=== PATIENT | male | born 1995 | race Hispanic/Latino ===

== ENCOUNTER 2024-03-29 19:27 | Inpatient (IN) | payer SELFPAY ==
[2024-03-29] MEDS ORDERED: Senokot S 8.6-50 MG TAB PO PRN (21:43)
[2024-03-29] MEDS ORDERED: Acetaminophen 325 MG TAB PO PRN (21:43)
[2024-03-29] MEDS ORDERED: Bisacodyl 5 MG TAB PO PRN (21:43)
[2024-03-29] MEDS ORDERED: Acetaminophen 650 MG Suppository PR PRN (21:43)
[2024-03-29 22:28] LABS: Albumin 3.8 g/dL (3.1-4.5); Anion Gap 15 mmol/L (10-20); BUN (Urea Nitrogen) 56 mg/dL (8.9-20.6); BUN/Creatinine Ratio 16.82; Calc. Creatinine Clearance 0 mL/min (70-130); Calcium 9.8 mg/dL (7.8-10.44); Carbon Dioxide 16 mmol/L (22-29); Chloride 115 mmol/L (98-107); Estimated GFR 25; Glucose 90 mg/dL (70-105); Potassium 5.1 mmol/L (3.5-5.1); Prothrombin Time 12.9 sec (12.0-14.7); Sodium 141 mmol/L (136-145)
[2024-03-29 22:29] VITALS: BMI 37.2
[2024-03-29 22:30] LABS: Phosphorus 4.3 mg/dL (2.5-4.5); Uric Acid 10.2 mg/dL (3.7-7.7)
[2024-03-30] MEDS: Sodium Bicarbonate 150 MEQ in Sterile Water 1,000 ML IV SCH (01:07)
[2024-03-30 05:34] LABS: Anion Gap 14 mmol/L (10-20); BUN (Urea Nitrogen) 53 mg/dL (8.9-20.6); Calc. Creatinine Clearance 54 mL/min (70-130); Calcium 9.3 mg/dL (7.8-10.44); Carbon Dioxide 20 mmol/L (22-29); Chloride 111 mmol/L (98-107); Estimated GFR 25; Glucose 92 mg/dL (70-105); Potassium 4.9 mmol/L (3.5-5.1); Sodium 140 mmol/L (136-145)
[2024-03-30] MEDS ORDERED: Labetalol HCl 100 MG TAB PO SCH (09:00)
[2024-03-30] MEDS: Heparin 5,000 UNITS/ML VIAL SC SCH (09:10)
[2024-03-30] MEDS: Amlodipine 5 MG TAB PO SCH (09:14)
[2024-03-30] MEDS: Febuxostat 40 MG TAB PO SCH (09:14)
[2024-03-31 01:31] LABS: 24 Hr Creatinine 1907.86 mg/24 hr; Creatinine, Urine 52.27 mg/dL (24.00-392.00)
[2024-03-31 04:49] LABS: #Basophils Less than 0.03 10x3/uL (0.0-0.2); %Basophils 0.3 % (0.0-1.0); %Eosinophils 3.7 % (0.0-10.0); %Lymphocytes 37.7 % (21.0-51.0); %Monocytes 10.5 % (0.0-10.0); %Neutrophils 47.5 % (42.0-75.0); Hematocrit 41.9 % (42.0-52.0); Mean Corpuscular HGB CONC 33.4 g/dL (32.0-36.0); Mean Corpuscular Hemoglobin 27.1 pg (27.0-31.0); Mean Platelet Volume 10.5 fL (7.4-10.4); Platelet Count 217 10x3/uL (130-400); RBC Distribution Width 13.2 % (11.5-14.5); Red Blood Cell (RBC) Count 5.17 mill/uL (4.70-6.10)
[2024-03-31 05:39] LABS: Albumin 3.2 g/dL (3.1-4.5); Anion Gap 14 mmol/L (10-20); BUN (Urea Nitrogen) 51 mg/dL (8.9-20.6); BUN/Creatinine Ratio 14.91; Calc. Creatinine Clearance 52 mL/min (70-130); Calcium 9.2 mg/dL (7.8-10.44); Carbon Dioxide 25 mmol/L (22-29); Chloride 106 mmol/L (98-107); Estimated GFR 24; Glucose 91 mg/dL (70-105); Potassium 4.3 mmol/L (3.5-5.1); Sodium 141 mmol/L (136-145)
[2024-03-31 05:46] LABS: Phosphorus 5.3 mg/dL (2.5-4.5)
[2024-03-31] MEDS: Sodium Bicarbonate 50 MEQ in Sodium Chloride 0.45% 1,000 ML IV SCH (11:09)
[2024-03-31] MEDS ORDERED: Midazolam HCl 2 mg/2 ml Vial ONE ×2 (12:11→12:12)
[2024-03-31] MEDS ORDERED: Sodium Bicarbonate 2.5 MEQ/5 ML SDV ONE (12:11)
[2024-03-31] MEDS ORDERED: fentaNYL 50 mcg/mL 1 mL Vial ONE ×2 (12:11→13:56)
[2024-03-31] MEDS ORDERED: Lidocaine 1% w/Epinephrine 1:100K 20 ML VIAL ONE (12:11)
[2024-04-01] MEDS ORDERED: hydrALAZINE 20 MG/ML VIAL SLOW IVP SCH (00:30)
[2024-04-01 04:45] LABS: Phosphorus 5.9 mg/dL (2.5-4.5)
[2024-04-01 04:46] LABS: Albumin 3.1 g/dL (3.1-4.5); Anion Gap 15 mmol/L (10-20); BUN (Urea Nitrogen) 52 mg/dL (8.9-20.6); BUN/Creatinine Ratio 15.52; Calc. Creatinine Clearance 53 mL/min (70-130); Calcium 8.8 mg/dL (7.8-10.44); Carbon Dioxide 25 mmol/L (22-29); Chloride 105 mmol/L (98-107); Estimated GFR 25; Glucose 112 mg/dL (70-105); Potassium 4.1 mmol/L (3.5-5.1); Sodium 141 mmol/L (136-145)
[2024-04-01 12:56] LABS: ANA Symphony (Qualitative) Negative (Negative); ANA Symphony (Quantitative) 0.3 Ratio (< 0.7 Negative); dsDNA IgG Antibody 0.8 IU/mL (<10 Negative)
[2024-04-01 18:21] VITALS: BP 148/98; TEMP 98.4
== END 2024-04-01 18:06 | disposition home or self-care (01) | DRG 683 ==
LOC: MSONC 21:29
PROVIDERS: ADMIT Internal Medicine; ATTEND Hospitalist
PROC: 0TB03ZX Excision of Right Kidney, Percutaneous Approach, Diagnostic (ICD-10-PCS; principal; 2024-03-31)
DX: N17.9 Acute kidney failure, unspecified (principal); E87.21 Acute metabolic acidosis; N14.19 Nephropathy induced by other drugs, medicaments and biological substances; R80.9 Proteinuria, unspecified; I12.9 Hypertensive chronic kidney disease with stage 1 through stage 4 chronic kidney disease, or unspecified chronic kidney disease; N18.4 Chronic kidney disease, stage 4 (severe); E79.0 Hyperuricemia without signs of inflammatory arthritis and tophaceous disease; Z87.81 Personal history of (healed) traumatic fracture; T39.395A Adverse effect of other nonsteroidal anti-inflammatory drugs [NSAID], initial encounter
CPT/HCPCS: 36415; 50200; 76770; 77012; 80048; 80069; 82570; 84156; 84550; 85025; 85610; 85730; 86038; 86225; 88329; A4217; J2250; J3010